=== PATIENT | female | born 2000 ===

== ENCOUNTER 2024-10-11 03:18 | Emergency (ER) | payer MEDICAID, SELFPAY ==
[2024-10-11 03:43] VITALS: BP 126/90; PULSE 77; RESP 18; TEMP 36.9; O2SAT 99; BMI 31.0
--- NOTE | 2024-10-11 04:00 | ED_ITS ---
HPI - General Adult General Chief complaint: Unspecified Complaint, Adult Stated complaint: numbness and tingling of arms and hands Time Seen by Provider: 10/11/24 03:35 History of Present Illness HPI narrative: 23-year-old female presents the emergency department with a 2-1/2 hour history of bilateral tingling of her forearms after consuming a [employer] energy drink. No weakness in her arms or hands, no movement deficits. No trauma or injury. No chest pain, no shortness of breath, no other neurological changes. Has consumed energy drinks in the past. Does have a history of anxiety disorder. Poor sleep because she has been studying for final exams. Eating and drinking normally otherwise. Denies any other recreational substances. She does not have a history of bleeding or blood clotting disorders, no prior history of arrhythmias. Does not smoke. No fevers, vomiting or other signs of recent illness. Past medical history notable for hypothyroidism and anxiety disorder, both modified on medication. ROS otherwise negative times 12 with the exception of the bilateral forearm tingling. Otherwise denies any other generalized, cardiovascular, respiratory, neurological or skin changes. Related Data Home Medications ?Medication ?Instructions ?Recorded ?Confirmed levothyroxine 50 mcg tablet 50 mcg PO DAILY 10/11/24 10/11/24 sertraline 100 mg tablet 100 mg PO DAILY 10/11/24 10/11/24 sertraline 50 mg tablet 50 mg PO DAILY 10/11/24 10/11/24 Allergies Allergy/AdvReac Type Severity Reaction Status Date / Time house dust Allergy Unknown Verified 10/11/24 03:46 [facility] Medical History Hypothyroidism ?E03.9 - Hypothyroidism, unspecified (ICD-10) Exam Const: Vital Signs, click to edit/add: Vital Signs - 24 hr 10/11/24 03:43 Temperature 98.4 F Pulse Rate [Left P ulse Oximeter] 77 Respiratory Rate 18 Blood Pressure [Ri ght Upper Arm] 126/90 H Pulse Oximetry 99 Oxygen Delivery Me thod Room Air Documenting provider has reviewed patient's vital signs: yes Common normals: no apparent distress and alert General appearance: cooperative, comfortable and well kempt HENMT: Common normals: normocephalic and head/scalp atraumatic Head and scalp: normocephalic and atraumatic Face and sinus: normal facial exam Mouth: oral and palatal mucosa normal Throat: posterior oropharynx normal Eye: Common normals: conjunctivae normal and no scleral icterus General eye: normal appearance of both eyes Conjunctiva: conjunctiva(e) normal Neck & C-Spine: Common normals: full ROM, no lymphadenopathy and no meningeal signs Cervical spine: cervical ROM normal; no cervical spine tenderness Chest: Common normals: inspection of chest normal Resp: Common normals: normal respiratory effort, no use of accessory muscles and clear to auscultation bilaterally Effort & inspection: able to speak in complete sentences Auscultation: clear to auscultation bilaterally Cardio: Common normals: regular rate, regular rhythm, S1 normal heart sound, S2 normal heart sound and no murmurs Rate: regular rate Rhythm: regular rhythm Heart sounds: S1 normal and S2 normal Extremity: Common normals: normal to inspection, full ROM, normal capillary refill and no pedal edema Other: Normal range of motion of both shoulders, no weakness of the rotator cuff, biceps. Normal appearance of the elbows, wrists hands with normal range of motion and strength. Neuro: Sensorium/orientation: alert Meningeal signs: no meningeal signs Speech: speech normal Gait (neuro): normal gait Motor exam: strength 5/5 throughout Psych: Appearance: well kempt Attitude: engaged Activity/motor behavior: appropriate eye contact Insight: insight good Judgement: judgment good Skin: Common normals: no rashes or lesions noted General skin exam: no rashes or lesions noted Course Course ED Course: 23-year-old female with bilateral forearm tingling following ingestion of energy drink on poor sleep. Suspect side effect. Offered EKG which she declines after our discussion. Do not recommend blood work, neurological imaging or other further workup. Patient would like to try to make it to her final in a couple of hours and I think this is reasonable to discharge. Alarm symptoms of stroke, arrhythmia and other alarming symptoms were reviewed, written instructions were provided. Try to get some rest, drink plenty of fluids that are non caffeinated. Primary care follow-up if repeated episodes. Vital Signs Vital signs: Initial Vital Signs Temperature 98.4 F 10/11/24 03:43 Temperature Source Temporal Artery Scan 10/11/24 03:43 Pulse Rate 77 10/11/24 03:43 Pulse Rhythm Regular 10/11/24 03:43 Respiratory Rate 18 10/11/24 03:43 Blood Pressure 126/90 H 10/11/24 03:43 Blood Pressure Mean 102 10/11/24 03:43 Blood Pressure Position Sitting 10/11/24 03:43 Pulse Oximetry 99 10/11/24 03:43 Oxygen Delivery Method Room Air 10/11/24 03:43 Vital Signs Temperature 98.4 F 10/11/24 03:43 Pulse Rate 77 10/11/24 03:43 Respiratory Rate 18 10/11/24 03:43 Blood Pressure 126/90 H 10/11/24 03:43 Pulse Oximetry 99 10/11/24 03:43 Oxygen Delivery Method Room Air 10/11/24 03:43 Temperature 98.4 F 10/11/24 03:43 Pulse Rate 77 10/11/24 03:43 Respiratory Rate 18 10/11/24 03:43 Blood Pressure 126/90 H 10/11/24 03:43 Pulse Oximetry 99 10/11/24 03:43 Oxygen Delivery Method Room Air 10/11/24 03:43 Discharge Plan Discharge Clinical Impression: Side effect of drug Patient Disposition: Home, Self-Care Condition: Stable Instructions: Caffeine Use (ED) Additional Instructions: As we discussed, your symptoms are consistent with side effects of energy drinks and the chemicals contained in them besides just caffeine. There are no signs of stroke, arrhythmia, unstable vitals or other abnormality today. Even though you have consumed energy drinks in the past, there are many factors that determine side effects including how much sleep you have had, other caffeine use, nutrition, many others. There are no alarming symptoms today. I offered EKG and further workup and you declined this today which honestly really is medically appropriate. You are likely to have similar side effects a few consume those products in the future. Continue taking your medications as prescribed, try to get better sleep, drink more water, avoid these substances in the future. If you have significant chest pain, severe shortness of breath, focal neurological changes or other worrisome symptoms, please come back to the emergency department. You may resume all typical school, work and or recreational activities with no restrictions. Activity Level: No Restrictions Discharge Diet: Regular Prescriptions: No Action sertraline 100 mg tablet 100 mg PO DAILY levothyroxine 50 mcg tablet 50 mcg PO DAILY sertraline 50 mg tablet 50 mg PO DAILY Stand Alone Forms: [employer] Info Instructions
== END 2024-10-11 04:14 | disposition home or self-care (01) ==
LOC: ED 04:06
PROVIDERS: Emergency Provider Family Medicine
DX: R20.2 Paresthesia of skin (principal); T43.615A Adverse effect of caffeine, initial encounter
CPT/HCPCS: 99283